=== PATIENT | female | born 1960 | race Two or more races ===

== ENCOUNTER 2019-02-22 09:41 | Emergency (ER) | payer SELFPAY ==
[2019-02-22 11:05] VITALS: BP 120/82
--- NOTE | 2019-02-22 11:20 | ER Document Report ---
ED Neuro Symptoms/Deficit - General Mode of Arrival: Ambulatory Information source: Patient - HPI Patient complains to provider of: Facial Droop - General Chief Complaint: Facial Droop Stated Complaint: FACIAL PARALYSIS Time Seen by Provider: 02/22/19 10:19 Primary Care Provider: [facility] [Provider Group] - Follow up as needed ROHIT ROSSI MD [ACTIVE STAFF] - Follow up as needed DANY MOSS OT [OPTHALMIC FORM BUILDER] - Follow up as needed YVETTE LINCOLN DO [ACTIVE STAFF] - Follow up as needed - HPI Notes: Patient here with family member at the bedside. [employer] was used. Patient developed right-sided facial droop on Monday, 5 days ago. No numbness, tingling, weakness to the arms or legs. Symptoms have been persistent. She feels like she cannot fully close her right eye. No headache. No fever. No head injury. No specific tick contacts. She denies a history of diabetes, high cholesterol, CAD, stroke. 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 States she was having some pain to the right side of her face a few days prior to the facial droop starting. She denies any chest pain or shortness of breath. No abdominal pain. No nausea, vomiting, diarrhea. No difficulty breathing or swallowing. Nothing seems to make the symptoms better or worse. No blood thinning medications. No other complaints. (NICOLAS NAVARRETE) - Related Data Allergies/Adverse Reactions: No Known Allergies Allergy (Verified 02/22/19 09:45) Past Medical History - Social History Smoking Status: Never Smoker Family History: Reviewed & Not Pertinent Review of Systems - Review of Systems -: Yes All other systems reviewed and negative Physical Exam - Vital signs Vitals: Resp Pulse Ox 20 97 02/22/19 10:43 02/22/19 10:43 - Notes Notes: GENERAL: alert, cooperative, nontoxic, no distress. HEAD: normocephalic, atraumatic EYES: conjunctiva pink without discharge, no external redness or swelling. EARS: no external swelling, no external redness NOSE: atraumatic, no external swelling MOUTH/THROAT: mucous membranes moist and pink, posterior pharynx without erythema, swelling, exudate. No trismus or drooling. NECK: soft, supple, full range of motion, no meningismus. CHEST: no distress, lungs clear and equal throughout. No wheezing, rales, rhonchi. CARDIAC: regular rate and rhythm, no murmur, normal capillary refill, normal pulses. No peripheral edema noted. ABDOMEN: Soft, nontender. BACK: full range of motion, no CVA tenderness. EXTREMITIES: full range of motion of all extremities. No redness, no swelling. NEURO: alert and oriented x 3. full range of motion of all extremities. Patient with right-sided facial droop, decreased wrinkling of the forehead and inability to completely close the right eye. The remainder of the patient's neurological exam is completely normal. She does have some mild slurring of her speech due to her facial droop but otherwise her speech is unremarkable. NIH stroke score is 4 due to the right sided facial droop as well as the mild slurred speech while speaking. PYSCH: appropriate mood, affect. Patient is cooperative. SKIN: pink, warm, dry, no rash. (NICOLAS NAVARRETE) Course - Re-evaluation Re-evalutation: 02/22/19 11:22 Patient is nontoxic-appearing with stable vitals. Patient here with complaints of right-sided facial droop for the last 5 days. No injury. No headache. No numbness, tingling, weakness to the arms or legs. On exam the patient has an exam consistent with Langley's palsy she has paralysis of the forehead, right side of the face. She has no extremity weakness or sensation difference. No signs of CVA. She has no CVA risk factors aside from age. Patient was seen and evaluated by Dr. Valdes who agrees that this is Langley's palsy. Patient will be discharged home with acyclovir, prednisone, erythromycin ointment with referral to ophthalmology as well as primary care. Follow-up for numbness, tingling, weakness of the arms or legs, chest pain or shortness of breath, fever, persistent vomiting, or for any further concerns. The patient's emergency department workup and current diagnosis were explained to the patient and or family. Follow-up instructions were provided. Medications if prescribed were discussed. Instructions for when to return to the emergency department including specific worrisome symptoms were discussed with the patient and/or family. (NICOLAS NAVARRETE) 02/22/19 13:17 I personally and independently obtained patient history and examined the patient and have reviewed the APC's note, reviewed, discussed and agree with their assessment and plan. MEDICAL DECISION MAKING: Patient is resting comfortably. [employer] services were used. She does have paralysis of her right upper and lower face as well as periorbital muscles. She can mostly close her right eye but not completely. Agree with diagnosis of Langley's palsy. She has no other acute neurologic deficits to suggest stroke. Agree with plan of care and follow-up instructions. Please review detail APC documentation. *Note is created using voice recognition software and may contain spelling, syntax or grammatical errors. (CHARLY VALDES) - Vital Signs Vital signs: Temp Pulse Resp BP Pulse Ox 21 H 120/82 96 02/22/19 11:01 02/22/19 11:01 02/22/19 11:01 Discharge - Discharge Clinical Impression: Langley's palsy Condition: Stable Disposition: HOME, SELF-CARE Instructions: Langley's Palsy ([facility]) Additional Instructions: Take medication as prescribed. Follow-up with your doctor at the next available appointment for reevaluation. Follow-up with ophthalmology if you have any eye pain. Follow-up sooner for worsening pain, fever, redness, blurred or loss vision, numbness, tingling, weakness on one side your body, or for any further concerns. Prescriptions: Erythromycin Base [Erythromycin 0.5% Oph Ointment 3.5 gm] 1 applic OD QHS #1 tube RX: Acyclovir [Acyclovir 400 mg Tablet] 400 mg PO TID #30 tablet RX: Prednisone 5 mg PO ASDIR 18 Days [id number] Forms: Smoking Cessation Education Referrals: [facility] [Provider Group] - Follow up as needed ROHIT ROSSI MD [ACTIVE STAFF] - Follow up as needed YVETTE LINCOLN DO [ACTIVE STAFF] - Follow up as needed DANY MOSS OT [OPTHALMIC FORM BUILDER] - Follow up as needed Print Language: Maltese
== END 2019-02-22 12:00 | disposition home or self-care (01) ==
LOC: ER 09:41
DX: G51.0 Bell's palsy (principal)
CPT/HCPCS: 99283